=== PATIENT | female | born 1985 | race Caucasian/White ===

== ENCOUNTER 2024-04-27 13:04 | Emergency (ER) | payer OTHER ==
[~2024-04-27] VITALS: Ht 162.6 cm; Wt 84.4 kg
[2024-04-27 13:23] VITALS: BP 129/58; PULSE 61; RESP 19; TEMP 97.2; O2SAT 99
[2024-04-27] MEDS: PROCHLORPERAZINE 10 MG/2 ML VIAL IM ONE (14:11)
[2024-04-27] MEDS: KETOROLAC 30 MG/ML VIAL IM ONE (14:11)
[2024-04-27] MEDS ORDERED: ONDA-188 PO (15:00)
[2024-04-27] MEDS ORDERED: ACET-10509 PO (15:00)
== END 2024-04-27 15:05 | disposition home or self-care (01) ==
LOC: MED 13:04
DX: G43.909 Migraine, unspecified, not intractable, without status migrainosus (principal); R11.2 Nausea with vomiting, unspecified; Z79.1 Long term (current) use of non-steroidal anti-inflammatories (NSAID)
CPT/HCPCS: 81025; 96372; 99284; J0780; J1885; Q0163